=== PATIENT | female | born 1995 | race Caucasian/White ===

== ENCOUNTER → 2017-08-02 | Outpatient (CLI) | payer OTHER ==
--- NOTE | 2017-08-02 15:39 | DIAGNOSTIC IMAGING REPORT ---
LEFT WRIST MIN 3 VIEWS ROUTINE CLINICAL HISTORY: F/U LEFT WRIST INJURY trauma COMPARISON: None. DISCUSSION: The bones and joint spaces appear intact. There is no evidence of fracture, dislocation or bony disease. There is no evidence for soft tissue swelling. IMPRESSION: Negative study. The above report was generated using voice recognition software. It may contain grammatical, syntax or spelling errors. Electronically signed by: Brody Garcia M.D. 08/02/2017 3:38 PM Dictated Date/Time: 08/02/2017 3:37 PM
--- NOTE | 2017-08-02 15:52 | DIAGNOSTIC IMAGING REPORT ---
LEFT WRIST 2 VIEWS CLINICAL HISTORY: LEFT WRIST PAIN COMPARISON: None. DISCUSSION: The bones and joint spaces appear intact. There is no evidence of fracture, dislocation or bony disease. There is no evidence for soft tissue swelling. IMPRESSION: Negative study. The above report was generated using voice recognition software. It may contain grammatical, syntax or spelling errors. Electronically signed by: Brody Garcia M.D. 08/02/2017 3:50 PM Dictated Date/Time: 08/02/2017 3:50 PM
== END | disposition home or self-care (01) ==
LOC: C.RDSM 15:42
PROVIDERS: ATTEND Family Medicine
DX: S69.92XA Unspecified injury of left wrist, hand and finger(s), initial encounter (principal); M25.532 Pain in left wrist; X58.XXXA Exposure to other specified factors, initial encounter